=== PATIENT | female | born 1980 | race American Indian/Alaskan Native ===

== ENCOUNTER 2017-09-02 10:04 | Emergency (ER) | payer OTHER ==
[2017-09-02] MEDS ORDERED: Bacitracin Oint 1 GM U/D Packet TOP ONE (10:37)
[2017-09-02] MEDS ORDERED: Diphtheria,Pertussis(Acell),Tetanus Vaccine 0.5 ML SDV IM ONE (10:37)
[2017-09-02] MEDS ORDERED: Cephalexin 500 MG Cap PO ONE (10:38)
--- NOTE | 2017-09-02 10:53 | EDM.PDOC ---
Scribed by Becka Morgan 09/02/17 1053 for Fracnisco Medel PA ED HPI GENERAL MEDICAL PROBLEM - General Chief Complaint: Skin Complaint Stated Complaint: BITE BY SOMETHING, RT TOE, LEFT LEG Time Seen by Provider: 09/02/17 10:30 Source of Information: Reports: Patient, RN, RN Notes Reviewed History Limitations: Reports: No Limitations - History of Present Illness INITIAL COMMENTS - FREE TEXT/NARRATIVE: Patient is a 37-year-old female with left posterior ankle erythematous with white corner and no drainage. She also on the right foot 3rd toe distal a hangnail that she removed last week. She says drainage started on Sunday with increased pain today. It is also erythematous. Onset: Gradual Duration: Getting Worse Location: Reports: Lower Extremity, Left, Lower Extremity, Right Quality: Reports: Ache Severity: Moderate Improves with: Reports: None Worsens with: Reports: None Associated Symptoms: Reports: No Other Symptoms Left Lower Leg Pain Score (Numeric/FACES): 8 - Related Data Allergies Allergy/AdvReac Type Severity Reaction Status Date / Time No Known Allergies Allergy Verified 09/02/17 10:24 Home Meds: Home Meds . [No Known Home Meds] 09/02/17 [History] Past Medical History - Past Surgical History Female Surgical History: Reports: Hysterectomy Social & Family History - Tobacco Use Smoking Status *Q: Never Smoker - Caffeine Use Caffeine Use: Reports: Coffee, Soda, Tea - Recreational Drug Use Recreational Drug Use: No ED ROS GENERAL - Review of Systems Review Of Systems: ROS reveals no pertinent complaints other than HPI. ED EXAM, SKIN/RASH Exam: See Below Exam Limited By: No Limitations General Appearance: Alert Eye Exam: Bilateral Eye: Normal Inspection Ears: Normal External Exam, Normal Canal, Hearing Grossly Normal, Normal TMs Nose: Normal Inspection, Normal Mucosa, No Blood Throat/Mouth: Normal Inspection, Normal Lips, Normal Teeth, Normal Gums, Normal Oropharynx, Normal Voice, No Airway Compromise Head: Atraumatic, Normocephalic Neck: Normal Inspection, Supple, Non-Tender, Full Range of Motion Respiratory/Chest: No Respiratory Distress, Lungs Clear, Normal Breath Sounds, No Accessory Muscle Use, Chest Non-Tender Cardiovascular: Normal Peripheral Pulses, Regular Rate, Rhythm, No Edema, No Gallop, No JVD, No Murmur, No Rub GI/Abdominal: Normal Bowel Sounds (Female) Exam: Deferred Rectal (Female) Exam: Deferred Back Exam: Normal Inspection, Full Range of Motion, NT Extremities: Normal Inspection, Normal Range of Motion, Non-Tender, No Pedal Edema, Normal Capillary Refill Neurological: Alert, Oriented, CN II-XII Intact, Normal Cognition, Normal Gait, Normal Reflexes, No Motor/Sensory Deficits Psychiatric: Normal Affect, Normal Mood Location, Skin: Lower Extremity, Right (3rd toe erythema, entire distal toe wtih drainage medial.), Lower Extremity, Left (wound left posterior ankle with surrounding erythema andwhite in center with no drainage. ) Course - Vital Signs Last Recorded V/S: Last Vital Signs Temp 36.6 C 09/02/17 10:18 Pulse 63 09/02/17 10:18 Resp 16 09/02/17 10:18 BP 130/85 09/02/17 10:18 Pulse Ox 98 09/02/17 10:18 - Orders/Labs/Meds Orders: Active Orders 24 hr Category Date Time Status Vaccines to be Administered [RC] PER UNIT ROUTINE Care 09/02/17 10:39 Ordered CULTURE WOUND [RM] Stat Lab 09/02/17 10:46 Ordered Meds: Medications Discontinued Medications Generic Name Dose Route Start Last Admin Trade Name Freq PRN Reason Stop Dose Admin Bacitracin 1 dose 09/02/17 10:37 Bacitracin Oint 1 Gm TOP 09/02/17 10:38 ONETIME ONE Cephalexin 500 mg 09/02/17 10:38 09/02/17 10:48 Keflex PO 09/02/17 10:39 500 mg ONETIME ONE Administration Diphtheria/Tetanus/Acell Pertussis 0.5 ml 09/02/17 10:37 Adacel IM 09/02/17 10:38 .ONCE ONE Departure - Departure Time of Disposition: 10:49 Disposition: Home, Self-Care 01 Condition: Fair Clinical Impression: Cellulitis of left leg without foot, Cellulitis of right toe - Discharge Information *PRESCRIPTION DRUG MONITORING PROGRAM REVIEWED*: Not Applicable *COPY OF PRESCRIPTION DRUG MONITORING REPORT IN PATIENT PEPE: Not Applicable Instructions: Cellulitis, Adult, [id number] Forms: ED Department Discharge Care Plan Goals: The patient was advised of the examination results during the visit. A sample of the drainage from her right middle toe was sent to the lab for analysis. The patient will be notified if the culture results demonstrate that the antibiotic given to the patient is not appropriate for the infection once the results are received. The patient's wounds were dressed with antibiotic ointment while in the ED. The patient was given an oral dose of Keflex (500 mg) while in the ED. The patient was discharged with a script for Keflex (500 mg) #40 to take 1 by mouth 4 times per day for 10 days. The patient was encouraged to fill the prescription today (the pharmacy opens at noon) and take the medication as directed. If the patient has any additional symptoms or concerns, the patient should visit her primary care facility or return to the emergency department. - My Orders Last 24 Hours: My Active Orders 09/02/17 10:39 Vaccines to be Administered [RC] PER UNIT ROUTINE 09/02/17 10:46 CULTURE WOUND [RM] Stat - Assessment/Plan Last 24 Hours: My Active Orders 09/02/17 10:39 Vaccines to be Administered [RC] PER UNIT ROUTINE 09/02/17 10:46 CULTURE WOUND [RM] Stat I have read and agree with the documentation that has been completed regarding this visit. By signing this record, I attest that the documentation was completed in my physical presence and is an accurate record of the encounter.
== END 2017-09-02 11:00 | disposition home or self-care (01) ==
LOC: DL.ED 10:04
DX: L03.031 Cellulitis of right toe (principal); L03.116 Cellulitis of left lower limb
CPT/HCPCS: 87070; 87077; 87186; 90715; 96372; 99283; A9270

== ENCOUNTER 2019-06-27 20:42 | Emergency (ER) | payer MEDICAID, OTHER ==
--- NOTE | 2019-06-27 21:40 | EDM.PDOC ---
ED HPI GENERAL MEDICAL PROBLEM - General Stated Complaint: RIGHT SIDE CHEST PAIN Time Seen by Provider: 06/27/19 21:20 Source of Information: Reports: Patient History Limitations: Reports: No Limitations - History of Present Illness INITIAL COMMENTS - FREE TEXT/NARRATIVE: This 39 yo female patient reports to the ED with right upper chest pain. The patient reports her pain started yesterday while she was doing her house cleaning and dishes. The patient reports she feels like there is a sharp pressure into her right chest. The patient reports she has noticed the pain getting worse throughout the evening. The patient has not been seen or attempted to be seen in the clinic for her current symptoms. 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 [No Known Home Meds] 09/02/17 [History] Past Medical History - Past Surgical History Female Surgical History: Reports: Hysterectomy Social & Family History - Caffeine Use Caffeine Use: Reports: Coffee, Soda, Tea ED ROS GENERAL - Review of Systems Review Of Systems: Comprehensive ROS is negative, except as noted in HPI. ED EXAM, GENERAL - Physical Exam Exam: See Below Exam Limited By: No Limitations General Appearance: Alert, WD/WN, Anxious, Moderate Distress, Obese Eye Exam: Bilateral Eye: EOMI, Normal Inspection, PERRL Ears: Normal External Exam, Normal Canal, Hearing Grossly Normal, Normal TMs Nose: Normal Inspection, Normal Mucosa, No Blood Throat/Mouth: Normal Inspection, Normal Lips, Normal Teeth, Normal Gums, Normal Oropharynx, Normal Voice, No Airway Compromise Head: Atraumatic, Normocephalic Neck: Normal Inspection, Supple, Non-Tender, Full Range of Motion Respiratory/Chest: No Respiratory Distress, Lungs Clear, Normal Breath Sounds, No Accessory Muscle Use, Chest Non-Tender Cardiovascular: Normal Peripheral Pulses, Regular Rate, Rhythm, No Edema, No Gallop, No JVD, No Murmur, No Rub GI/Abdominal: Normal Bowel Sounds, Soft, Non-Tender, No Organomegaly, No Distention, No Abnormal Bruit, No Mass (Female) Exam: Deferred Rectal (Female) Exam: Deferred Back Exam: Normal Inspection, Full Range of Motion, NT Extremities: Normal Inspection, Normal Range of Motion, Non-Tender, Normal Capillary Refill, No Pedal Edema Neurological: Alert, Oriented, CN II-XII Intact, Normal Cognition, Normal Gait, Normal Reflexes, No Motor/Sensory Deficits Psychiatric: Normal Affect, Normal Mood Skin Exam: Warm, Dry, Intact, Normal Color, No Rash Lymphatic: No Adenopathy Course - Vital Signs Last Recorded V/S: Last Vital Signs Temp 37.1 C 06/27/19 20:54 Pulse 97 06/27/19 20:54 Resp 16 06/27/19 20:54 BP 131/77 06/27/19 20:54 Pulse Ox 95 06/27/19 20:54 - Orders/Labs/Meds Orders: Active Orders 24 hr Category Date Time Status EKG Documentation Completion [RC] STAT Care 06/27/19 21:04 Ordered CBC WITH AUTO DIFF [HEME] Stat Lab 06/27/19 21:04 Ordered COMPREHENSIVE METABOLIC PN,CMP [CHEM] Stat Lab 06/27/19 21:04 Ordered DRUG SCREEN URINE BIORAD [URCHEM] Stat Lab 06/27/19 21:04 Ordered ETHANOL BLOOD MEDICAL [CHEM] Stat Lab 06/27/19 21:04 Ordered TROPONIN I [CHEM] Stat Lab 06/27/19 21:04 Ordered UA RFX SHAYY AND CULT IF INDIC [URIN] Urgent Lab 06/27/19 21:04 Ordered Labs: Laboratory Tests 06/27/19 Range/Units 21:15 Urine HCG, Qual Negative Departure - Departure Time of Disposition: 21:34 Disposition: Against Medical Advice 07 Condition: Undetermined Clinical Impression: Left against medical advice Care Plan Goals: This patient left prior to any lab work was completed. Sepsis Event Note - Evaluation Sepsis Screening Result: No Definite Risk - Focused Exam Vital Signs: Vital Signs Temp Pulse Resp BP Pulse Ox 06/27/19 20:54 37.1 C 97 16 131/77 95 Date Exam was Performed: 06/27/19 Time Exam was Performed: 21:34 - My Orders Last 24 Hours: My Active Orders 06/27/19 21:04 EKG Documentation Completion [RC] STAT CBC WITH AUTO DIFF [HEME] Stat COMPREHENSIVE METABOLIC PN,CMP [CHEM] Stat DRUG SCREEN URINE BIORAD [URCHEM] Stat ETHANOL BLOOD MEDICAL [CHEM] Stat TROPONIN I [CHEM] Stat UA RFX SHAYY AND CULT IF INDIC [URIN] Urgent - Assessment/Plan Last 24 Hours: My Active Orders 06/27/19 21:04 EKG Documentation Completion [RC] STAT CBC WITH AUTO DIFF [HEME] Stat COMPREHENSIVE METABOLIC PN,CMP [CHEM] Stat DRUG SCREEN URINE BIORAD [URCHEM] Stat ETHANOL BLOOD MEDICAL [CHEM] Stat TROPONIN I [CHEM] Stat UA RFX SHAYY AND CULT IF INDIC [URIN] Urgent
[2019-06-27 21:52] LABS: ANION GAP 14.9 mEq/L (7-13); CHLORIDE,CL 103 mmol/L (98-107); SODIUM,NA 140 mmol/L (136-145)
== END 2019-06-27 21:40 | disposition left against medical advice (07) ==
LOC: DL.ED 20:42
DX: R07.89 Other chest pain (principal)
CPT/HCPCS: 36415; 80053; 80305-QW; 80307; 81001; 81025; 84484; 85025; 93005; 99285-25

== ENCOUNTER 2020-03-02 14:56 | Emergency (ER) | payer MEDICAID ==
--- NOTE | 2020-03-02 15:57 | CR ---
EXAMINATION: Chest 1V Frontal SEX: Female AGE: 39 years CLINICAL HISTORY: 39-year-old female with "no breath sounds" on right side. No known trauma. CT exam 06 February 2020 at this institution reveals bibasilar dependent pleural effusions (largest on the right). INTERPRETATION: (Upright AP portable) abnormal. 1. Huge pleural fluid accumulation occupying two thirds of the right hemithorax (smaller left pleural effusion). 2. Normal cardiac silhouette (size and configuration). 3. No pulmonary vascular congestion (cephalization of flow or alveolar edema). 4. No lung mass or obvious hilar lymphadenopathy. 5. No pneumothorax or pneumomediastinum. Midline tracheal bronchial airway unremarkable.
--- NOTE | 2020-03-02 16:43 | EDM.PDOC ---
ED HPI GENERAL MEDICAL PROBLEM - General Chief Complaint: Respiratory Problem Stated Complaint: FLUID IN RIGHT LUNG Time Seen by Provider: 03/02/20 15:35 Source of Information: Reports: Patient, Old Records, RN, RN Notes Reviewed History Limitations: Reports: No Limitations - History of Present Illness INITIAL COMMENTS - FREE TEXT/NARRATIVE: Pt sent from [facility] to be transferred to [facility]. Pt states she went to clinic today for a check up and reported feeling short of breath. The shortness of breath began about 2 weeks ago, but has been getting progressively worse. Now she struggles to breath just walking across a room. Pt states she was in [facility] on or about 02/11/20 for paracentesis. Hx of alcoholic cirrhosis. Claims to have abstained from alcohol consumption since 2019. Denies fever, chills, N/V/D, or hemoptysis. Admits to cough and orthopnea. Onset: Gradual Duration: Getting Worse Location: Reports: Chest Quality: Reports: Other (Denies pain) Severity: Severe Improves with: Reports: None Worsens with: Reports: None Associated Symptoms: Reports: No Other Symptoms - Related Data Allergies Allergy/AdvReac Type Severity Reaction Status Date / Time No Known Allergies Allergy Verified 03/02/20 15:29 Home Meds: Home Meds Lactulose [Cephulac] 0 ml PO ASDIRECTED 03/02/20 [History] Multivitamin with Minerals [Multiple Vitamin] 1 each PO DAILY 03/02/20 [History] Thiamine HCl 100 mg PO DAILY 03/02/20 [History] Past Medical History - Past Health History Medical/Surgical History: Denies Medical/Surgical History Gastrointestinal History: Reports: Cirrhosis - Past Surgical History Female Surgical History: Reports: Hysterectomy Social & Family History - Family History Family Medical History: No Pertinent Family History - Tobacco Use Tobacco Use Status *Q: Never Tobacco User - Caffeine Use Caffeine Use: Reports: Coffee, Soda, Tea Caffeine Use Comment: patient denies - Alcohol Use Alcohol Use History: Yes Alcohol Use Frequency: Not Used in Over 4 Months - Living Situation & Occupation Living situation: Reports: Occupation: Unemployed ED ROS GENERAL - Review of Systems Review Of Systems: Comprehensive ROS is negative, except as noted in HPI. ED EXAM, GENERAL - Physical Exam Exam: See Below Exam Limited By: No Limitations General Appearance: Alert, No Apparent Distress, Other (Chronically ill appearing) Eye Exam: Bilateral Eye: PERRL (Scleral icterus) Nose: Normal Inspection Throat/Mouth: Normal Voice, No Airway Compromise Head: Atraumatic, Normocephalic Neck: Normal Inspection Respiratory/Chest: No Respiratory Distress, No Accessory Muscle Use, Decreased Breath Sounds (No breath sounds on right middle and lower lung field, dull to percussion) Cardiovascular: Regular Rate, Rhythm GI/Abdominal: Normal Bowel Sounds, Soft, Tender (Mild RUQ tenderness, protruberant abdomen with mild fluid wave) (Female) Exam: Deferred Rectal (Female) Exam: Deferred Back Exam: Normal Inspection Neurological: Alert, Oriented, No Motor/Sensory Deficits Psychiatric: Normal Affect, Normal Mood Skin Exam: Warm, Dry, Jaundice. No: Cyanosis, Ecchymosis, Petechiae, Rash Course - Vital Signs Last Recorded V/S: Last Vital Signs Temp 99.2 F 03/02/20 15:28 Pulse 97 03/02/20 15:28 Resp 16 03/02/20 15:28 BP 116/69 03/02/20 15:28 Pulse Ox 96 03/02/20 15:28 - Radiology Interpretation Free Text/Narrative:: CXR: large Rt pleural effusion per Rad. report. Departure - Departure Time of Disposition: 16:30 Disposition: DC/Tfer to Acute Hospital 02 Condition: Fair Clinical Impression: Pleural effusion on right, Alcoholic cirrhosis of liver with ascites - Discharge Information *PRESCRIPTION DRUG MONITORING PROGRAM REVIEWED*: Not Applicable *COPY OF PRESCRIPTION DRUG MONITORING REPORT IN PATIENT PEPE: Not Applicable Forms: ED Department Discharge, Interfacility Transfer [facility] Sepsis Event Note (ED) - Evaluation Sepsis Screening Result: No Definite Risk - Focused Exam Vital Signs: Vital Signs Temp Pulse Resp BP Pulse Ox 03/02/20 15:28 99.2 F 97 16 116/69 96
== END 2020-03-02 17:18 ==
LOC: DL.ED 14:56
DX: J90 Pleural effusion, not elsewhere classified (principal); K70.31 Alcoholic cirrhosis of liver with ascites
CPT/HCPCS: 71045; 99285-25

== ENCOUNTER 2020-12-24 11:13 | Emergency (ER) | payer MEDICAID ==
[2020-12-24] MEDS ORDERED: Sodium Chloride 0.9% 10 ML Syringe FLUSH PRN (11:50)
[2020-12-24] MEDS ORDERED: GI Cocktail Oral Solution 30 ML PO ONE (12:03)
[2020-12-24] MEDS ORDERED: Ondansetron 4 MG/2 ML SDV IVPUSH ONE (12:04)
--- NOTE | 2020-12-24 12:14 | EDM.PDOC ---
ED HPI GENERAL MEDICAL PROBLEM - General Chief Complaint: Chest Pain Stated Complaint: CHEST PAIN Time Seen by Provider: 12/24/20 12:05 Source of Information: Reports: Patient History Limitations: Reports: No Limitations - History of Present Illness INITIAL COMMENTS - FREE TEXT/NARRATIVE: 40 y/o F c/o 09/28 epigastric pain started 9 am this morning after she took her daily meds. Pt normally takes her meds and then eats breakfast but today she skipped breakfast. Pt states after taking her pills she developed throbbing epigastric pain , nonradiating. Meds this morning consisted of Spironolactone, Iron, Lactulose, pantoprazole. After the pain developed pt became nauseated and decided to come to the Er. Hx of stage 3 liver disease secondary to alcoholism. Pt quit drinking a year ago and reports her doctors advise her liver is improving. She denies, kruger, cp, db, neck pn, jaw pn, shoulder pn, fever, coguh, chills, drugs, etoh, trauma. Chest Pain Score (Numeric/FACES): 9 - Related Data Allergies Allergy/AdvReac Type Severity Reaction Status Date / Time No Known Allergies Allergy Verified 03/02/20 15:29 Home Meds: Home Meds Lactulose [Cephulac] 30 ml PO QID 03/02/20 [History] Multivitamin with Minerals [Multiple Vitamin] 1 each PO DAILY 03/02/20 [History] Thiamine HCl 100 mg PO DAILY 03/02/20 [History] Furosemide [Lasix] 40 mg PO DAILY 12/24/20 [History] Pantoprazole 20 mg PO ACBREAKFAST 12/24/20 [History] Spironolactone [Aldactone] 100 mg PO DAILY 12/24/20 [History] Past Medical History - Past Health History Medical/Surgical History: Denies Medical/Surgical History Gastrointestinal History: Reports: Cirrhosis, Other (See Below) Other Gastrointestinal History: ascites - Past Surgical History Female Surgical History: Reports: Hysterectomy Social & Family History - Family History Family Medical History: No Pertinent Family History - Tobacco Use Tobacco Use Status *Q: Never Tobacco User - Caffeine Use Caffeine Use: Reports: None Caffeine Use Comment: patient denies - Recreational Drug Use Recreational Drug Use: No - Living Situation & Occupation Living situation: Reports: Occupation: Unemployed ED ROS GENERAL - Review of Systems Review Of Systems: Comprehensive ROS is negative, except as noted in HPI. ED EXAM, GENERAL - Physical Exam Exam: See Below Exam Limited By: No Limitations General Appearance: Alert Eye Exam: Bilateral Eye: PERRL Nose: Normal Inspection, Normal Mucosa, No Blood Throat/Mouth: Normal Inspection, Normal Lips, Normal Teeth, Normal Gums, Normal Oropharynx, Normal Voice, No Airway Compromise Head: Atraumatic, Normocephalic Neck: Normal Inspection, Supple, Non-Tender, Full Range of Motion Respiratory/Chest: No Respiratory Distress, Lungs Clear, Normal Breath Sounds, No Accessory Muscle Use, Chest Non-Tender Cardiovascular: Normal Peripheral Pulses, Regular Rate, Rhythm, No JVD, No Murmur GI/Abdominal: Soft, Tender (tender over the epigastrium, positive murphys sign. No ecchymosis noted over the abd. ) Back Exam: Normal Inspection, Full Range of Motion Extremities: Normal Inspection, Normal Range of Motion, Non-Tender, Normal Capillary Refill, No Pedal Edema Neurological: Alert, Oriented, CN II-XII Intact, Normal Cognition, Normal Gait, Normal Reflexes, No Motor/Sensory Deficits Psychiatric: Normal Affect, Normal Mood Skin Exam: Warm, Dry, Intact #1 Interpretation EKG Date: 12/24/20 Time: 11:27 Rhythm: Other (sinus) [place]: LAD-Left [place] Deviation P-Wave: Present QRS: Normal ST-T: Normal QT: Normal Course - Vital Signs Last Recorded V/S: Last Vital Signs Temp 97.8 F 12/24/20 11:47 Pulse 65 12/24/20 11:47 Resp 20 12/24/20 11:47 BP 116/66 12/24/20 11:47 Pulse Ox 100 12/24/20 11:47 - Orders/Labs/Meds Orders: Active Orders 24 hr Category Date Time Status Peripheral IV Care [RC] . DIRECTED Care 12/24/20 11:51 Active CULTURE URINE [RM] Stat Lab 12/24/20 13:43 Received UA W/MICROSCOPIC [URIN] Stat Lab 12/24/20 13:43 Results Sodium Chloride 0.9% [Saline Flush] Med 12/24/20 11:50 Active 10 ml FLUSH ASDIRECTED PRN Peripheral IV Insertion Adult [OM.PC] Routine Oth 12/24/20 11:50 Ordered Medication Orders Sodium Chloride (Sodium Chloride 0.9% 10 Ml Syringe) 10 ml FLUSH ASDIRECTED PRN PRN Reason: Keep Vein Open Last Admin: 12/24/20 12:24 Dose: 10 ml Documented by: [id number] Labs: Laboratory Tests 12/24/20 12/24/20 12/24/20 Range/Units 11:47 11:47 11:47 WBC 10.1 H (5.0-10.0) 10^3/uL RBC 3.59 L (4.2-5.4) 10^6/uL Hgb 11.8 L (12.0-16.0) g/dL Hct 35.0 L (37.0-47.0) % MCV 97.5 D (80-100) fL MCH 32.9 (27.0-34.0) pg MCHC 33.7 (33.0-35.0) g/dL Plt Count 78 L D (150-450) 10^3/uL Neut % (Auto) 72.1 (42.2-75.2) % Lymph % (Auto) 17.5 L (20.5-50.1) % [place] % (Auto) 6.6 (2-8) % Eos % (Auto) 3.6 H (1.0-3.0) % Baso % (Auto) 0.2 (0.0-1.0) % D-Dimer, Quantitative (0-400) ng/mL Sodium 140 (136-145) mmol/L Potassium 4.0 (3.5-5.1) mmol/L Chloride 107 (98-107) mmol/L Carbon Dioxide 22 (21-32) mmol/L Anion Gap 15.0 H (7-13) mEq/L BUN 14 (7-18) mg/dL Creatinine 0.90 (0.55-1.02) mg/dL Est Cr Clr Drug Dosing 77.01 mL/min Estimated GFR (MDRD) > 60 BUN/Creatinine Ratio 15.6 (No establ ref range) Glucose 99 (70-99) mg/dL Lactic Acid (0.4-2.0) mmol/L Calcium 8.9 (8.5-10.1) mg/dL Phosphorus 3.2 (2.6-4.7) mg/dL Magnesium 1.9 (1.8-2.4) mg/dL Total Bilirubin 1.6 H (0.2-1.0) mg/dL AST 29 (15-37) U/L ALT 25 (14-59) U/L Alkaline Phosphatase 106 (46-116) U/L Ammonia 27 (11-32) umol/L Troponin I High Sens 886 H* (<=51) pg/mL C-Reactive Protein < 0.2 (0.0-0.9) mg/dL B-Natriuretic Peptide 29 (0-100) pg/ml Total Protein 7.5 (6.4-8.2) g/dL Albumin 2.9 L (3.4-5.0) g/dL Globulin 4.6 Albumin/Globulin Ratio 0.63 Amylase 86 (25-115) U/L Lipase 242 (73-393) U/L TSH, Ultra Sensitive 1.37 (0.36-3.74) uIU/mL Urine Color (YELLOW) Urine Appearance (CLEAR) Urine pH (5.0-9.0) Ur Specific [place] (1.005-1.030) Urine Protein (NEGATIVE) Urine Glucose (UA) (NEGATIVE) Urine Ketones (NEGATIVE) Urine Occult Blood (NEGATIVE) Urine Nitrite (NEGATIVE) Urine Bilirubin (NEGATIVE) Urine Urobilinogen (0.2-1.0) mg/dL Ur Leukocyte Esterase (NEGATIVE) Urine Opiates Screen (NEGATIVE) Ur Oxycodone Screen (NEGATIVE) Urine Methadone Screen (NEGATIVE) Ur Barbiturates Screen (NEGATIVE) U Tricyclic Antidepress (NEGATIVE) Ur Phencyclidine Scrn (NEGATIVE) Ur Amphetamine Screen (NEGATIVE) U Methamphetamines Scrn (NEGATIVE) Urine MDMA Screen (NEGATIVE) U Benzodiazepines Scrn (NEGATIVE) Urine Cocaine Screen (NEGATIVE) U Marijuana (THC) Screen (NEGATIVE) Ethyl Alcohol < 3 (0) mg/dL 12/24/20 12/24/20 12/24/20 Range/Units 11:47 11:47 13:43 WBC (5.0-10.0) 10^3/uL RBC (4.2-5.4) 10^6/uL Hgb (12.0-16.0) g/dL Hct (37.0-47.0) % MCV (80-100) fL MCH (27.0-34.0) pg MCHC (33.0-35.0) g/dL Plt Count (150-450) 10^3/uL Neut % (Auto) (42.2-75.2) % Lymph % (Auto) (20.5-50.1) % Carver % (Auto) (2-8) % Eos % (Auto) (1.0-3.0) % Baso % (Auto) (0.0-1.0) % D-Dimer, Quantitative 128 (0-400) ng/mL Sodium (136-145) mmol/L Potassium (3.5-5.1) mmol/L Chloride (98-107) mmol/L Carbon Dioxide (21-32) mmol/L Anion Gap (7-13) mEq/L BUN (7-18) mg/dL Creatinine (0.55-1.02) mg/dL Est Cr Clr Drug Dosing mL/min Estimated GFR (MDRD) BUN/Creatinine Ratio (No establ ref range) Glucose (70-99) mg/dL Lactic Acid 1.2 (0.4-2.0) mmol/L Calcium (8.5-10.1) mg/dL Phosphorus (2.6-4.7) mg/dL Magnesium (1.8-2.4) mg/dL Total Bilirubin (0.2-1.0) mg/dL AST (15-37) U/L ALT (14-59) U/L Alkaline Phosphatase (46-116) U/L Ammonia (11-32) umol/L Troponin I High Sens (<=51) pg/mL C-Reactive Protein (0.0-0.9) mg/dL B-Natriuretic Peptide (0-100) pg/ml Total Protein (6.4-8.2) g/dL Albumin (3.4-5.0) g/dL Globulin Albumin/Globulin Ratio Amylase (25-115) U/L Lipase (73-393) U/L TSH, Ultra Sensitive (0.36-3.74) uIU/mL Urine Color Yellow (YELLOW) Urine Appearance Clear (CLEAR) Urine pH 7.5 (5.0-9.0) Ur Specific [place] 1.020 (1.005-1.030) Urine Protein Negative (NEGATIVE) Urine Glucose (UA) Negative (NEGATIVE) Urine Ketones Negative (NEGATIVE) Urine Occult Blood Moderate H (NEGATIVE) Urine Nitrite Negative (NEGATIVE) Urine Bilirubin Negative (NEGATIVE) Urine Urobilinogen 1.0 (0.2-1.0) mg/dL Ur Leukocyte Esterase Trace H (NEGATIVE) Urine Opiates Screen (NEGATIVE) Ur Oxycodone Screen (NEGATIVE) Urine Methadone Screen (NEGATIVE) Ur Barbiturates Screen (NEGATIVE) U Tricyclic Antidepress (NEGATIVE) Ur Phencyclidine Scrn (NEGATIVE) Ur Amphetamine Screen (NEGATIVE) U Methamphetamines Scrn (NEGATIVE) Urine MDMA Screen (NEGATIVE) U Benzodiazepines Scrn (NEGATIVE) Urine Cocaine Screen (NEGATIVE) U Marijuana (THC) Screen (NEGATIVE) Ethyl Alcohol (0) mg/dL 12/24/20 12/24/20 Range/Units 13:43 13:52 WBC (5.0-10.0) 10^3/uL RBC (4.2-5.4) 10^6/uL Hgb (12.0-16.0) g/dL Hct (37.0-47.0) % MCV (80-100) fL MCH (27.0-34.0) pg MCHC (33.0-35.0) g/dL Plt Count (150-450) 10^3/uL Neut % (Auto) (42.2-75.2) % Lymph % (Auto) (20.5-50.1) % [place] % (Auto) (2-8) % Eos % (Auto) (1.0-3.0) % Baso % (Auto) (0.0-1.0) % D-Dimer, Quantitative (0-400) ng/mL Sodium (136-145) mmol/L Potassium (3.5-5.1) mmol/L Chloride (98-107) mmol/L Carbon Dioxide (21-32) mmol/L Anion Gap (7-13) mEq/L BUN (7-18) mg/dL Creatinine (0.55-1.02) mg/dL Est Cr Clr Drug Dosing mL/min Estimated GFR (MDRD) BUN/Creatinine Ratio (No establ ref range) Glucose (70-99) mg/dL Lactic Acid (0.4-2.0) mmol/L Calcium (8.5-10.1) mg/dL Phosphorus (2.6-4.7) mg/dL Magnesium (1.8-2.4) mg/dL Total Bilirubin (0.2-1.0) mg/dL AST (15-37) U/L ALT (14-59) U/L Alkaline Phosphatase (46-116) U/L Ammonia (11-32) umol/L Troponin I High Sens 889 H* (<=51) pg/mL C-Reactive Protein (0.0-0.9) mg/dL B-Natriuretic Peptide (0-100) pg/ml Total Protein (6.4-8.2) g/dL Albumin (3.4-5.0) g/dL Globulin Albumin/Globulin Ratio Amylase (25-115) U/L Lipase (73-393) U/L TSH, Ultra Sensitive (0.36-3.74) uIU/mL Urine Color (YELLOW) Urine Appearance (CLEAR) Urine pH (5.0-9.0) Ur Specific [place] (1.005-1.030) Urine Protein (NEGATIVE) Urine Glucose (UA) (NEGATIVE) Urine Ketones (NEGATIVE) Urine Occult Blood (NEGATIVE) Urine Nitrite (NEGATIVE) Urine Bilirubin (NEGATIVE) Urine Urobilinogen (0.2-1.0) mg/dL Ur Leukocyte Esterase (NEGATIVE) Urine Opiates Screen Negative (NEGATIVE) Ur Oxycodone Screen Negative (NEGATIVE) Urine Methadone Screen Negative (NEGATIVE) Ur Barbiturates Screen Negative (NEGATIVE) U Tricyclic Antidepress Negative (NEGATIVE) Ur Phencyclidine Scrn Negative (NEGATIVE) Ur Amphetamine Screen Negative (NEGATIVE) U Methamphetamines Scrn Negative (NEGATIVE) Urine MDMA Screen Negative (NEGATIVE) U Benzodiazepines Scrn Negative (NEGATIVE) Urine Cocaine Screen Negative (NEGATIVE) U Marijuana (THC) Screen Negative (NEGATIVE) Ethyl Alcohol (0) mg/dL Meds: Medications Generic Name Dose Route Start Last Admin Trade Name Freq PRN Reason Stop Dose Admin Sodium Chloride 10 ml 12/24/20 11:50 12/24/20 12:24 Sodium Chloride 0.9% 10 Ml Syringe FLUSH 10 ml ASDIRECTED PRN Administration Keep Vein Open Discontinued Medications Generic Name Dose Route Start Last Admin Trade Name Freq PRN Reason Stop Dose Admin Al Hydroxide/Mg Hydroxide 30 ml 12/24/20 12:03 12/24/20 12:25 Gi Cocktail Oral Solution 30 Ml PO 12/24/20 12:04 30 ml ONETIME ONE Administration Aspirin 324 mg 12/24/20 12:39 Aspirin 81 Mg Tab.Chew PO 12/24/20 12:40 ONETIME ONE Ondansetron HCl 4 mg 12/24/20 12:04 12/24/20 12:24 Ondansetron 4 Mg/2 Ml Sdv IVPUSH 12/24/20 12:05 4 mg ONETIME ONE Administration - Re-Assessments/Exams Free Text/Narrative Re-Assessment/Exam: 12/24/20 14:36 The pt is feeling relief in her symptoms after tiffani GI cocktail and nausea meds. The US indicates the pt has gall bladder disease with stones. I will have her follow up wit a surgeon for further workup/treatment of her gallbladder. The pts troponin was initially elevated but the repeat it virtually unchanged. I am confident the pts symptoms are more likely GI and not cardiac. Departure - Departure Time of Disposition: 14:38 Disposition: Home, Self-Care 01 Condition: Good Clinical Impression: Gall bladder disease Instructions: Cholelithiasis, [id number] Forms: ED Department Discharge Additional Instructions: Follow up with a surgeon to discuss further treatment of your gall bladder disease. Avoid greasy foods as they can bring on gall bladder pain. Use Ibuprofen for pain as needed Take your medicines with food. Sepsis Event Note (ED) - Evaluation Sepsis Screening Result: No Definite Risk - Focused Exam Vital Signs: Vital Signs Temp Pulse Resp BP Pulse Ox 12/24/20 11:47 97.8 F 65 20 116/66 100 - My Orders Last 24 Hours: My Active Orders 12/24/20 11:50 Sodium Chloride 0.9% [Saline Flush] 10 ml FLUSH ASDIRECTED PRN Peripheral IV Insertion Adult [OM.PC] Routine 12/24/20 11:51 Peripheral IV Care [RC] . DIRECTED 12/24/20 13:43 CULTURE URINE [RM] Stat UA W/MICROSCOPIC [URIN] Stat - Assessment/Plan Last 24 Hours: My Active Orders 12/24/20 11:50 Sodium Chloride 0.9% [Saline Flush] 10 ml FLUSH ASDIRECTED PRN Peripheral IV Insertion Adult [OM.PC] Routine 12/24/20 11:51 Peripheral IV Care [RC] . DIRECTED 12/24/20 13:43 CULTURE URINE [RM] Stat UA W/MICROSCOPIC [URIN] Stat
[2020-12-24 12:24] LABS: CHLORIDE,CL 107 mmol/L (98-107); SODIUM,NA 140 mmol/L (136-145)
[2020-12-24] MEDS ORDERED: Aspirin 81 MG Tab.Chew PO ONE (12:39)
--- NOTE | 2020-12-24 13:30 | US ---
EXAMINATION: Abdomen Ltd SEX: Female AGE: 40 years CLINICAL HISTORY: 40-year-old female with right upper quadrant (RUQ) pain. CT exam 06 February 2020 revealed "ascites (chronic liver disease) and hydropic gallbladder with thickened wall" Interpretation: Abnormal. 1. Distended gallbladder with wall thickening (5.5 mm) and multiple tiny dependent intraluminal echogenic foci with backwall "shadowing" typical of gallstones. 2. Homogeneous normal shoulder density the liver. No sign of discrete cystic or solid intrahepatic mass lesion and no dilatation of intra or extrahepatic biliary ducts (common bile duct 4.4 mm diameter). 3. Sonographically normal pancreas i.e. no sign of mass, pseudocyst, calcifications or major pancreatic duct dilatation. No ascites. 4. Upper abdominal aorta unremarkable. No pleural effusions. CONCLUSION: Diseased gallbladder (Cholelithiasis).
[2020-12-24 14:02] LABS: BARBITURATES,URINE NEGATIVE (NEGATIVE); BENZODIAZEPINE,URINE NEGATIVE (NEGATIVE); MDMA (ECSTASY), URINE NEGATIVE (NEGATIVE); METHADONE,URINE NEGATIVE (NEGATIVE); METHAMPHETAMINES,URINE NEGATIVE (NEGATIVE); OPIATES,URINE NEGATIVE (NEGATIVE); TCA,URINE NEGATIVE (NEGATIVE)
[2020-12-24 14:03] LABS: AMPHETAMINES,URINE NEGATIVE (NEGATIVE); OXYCODONE,URINE NEGATIVE (NEGATIVE); PHENCYCLIDINE,URINE NEGATIVE (NEGATIVE)
== END 2020-12-24 14:52 | disposition home or self-care (01) ==
LOC: DL.ED 11:13
DX: K82.9 Disease of gallbladder, unspecified (principal); Z79.899 Other long term (current) drug therapy
CPT/HCPCS: 36415; 76705; 80053; 80305; 80307; 81001; 82140; 82150; 83605; 83690; 83735; 83880; 84100; 84443; 84484; 85025; 85379; 86140; 87086; 93005; 96374; 99284; A9270; J2405

== ENCOUNTER 2022-01-24 18:07 | Emergency (ER) | payer MEDICAID, OTHER ==
[2022-01-24] MEDS ORDERED: Sodium Chloride 0.9% 10 ML Syringe FLUSH PRN (18:28)
[2022-01-24 18:54] LABS: ANION GAP 16.4 mEq/L (7-13); CHLORIDE,CL 101 mmol/L (98-107); SODIUM,NA 137 mmol/L (136-145)
[2022-01-24 18:57] LABS: ESTIMATED GFR 70 mL/min (>=60)
[2022-01-24] MEDS ORDERED: Ondansetron 4 MG/2 ML SDV IVPUSH ONE (19:01)
[2022-01-24] MEDS ORDERED: Sodium Chloride 0.9% 1,000 ML IV ONE (19:03)
[2022-01-24] MEDS: GI Cocktail Oral Solution 30 ML PO ONE ×2 (19:18→19:47)
[2022-01-24 20:00] LABS: CORONAVIRUS COVID-19 NAA NEGATIVE (NEGATIVE)
== END 2022-01-24 20:35 | disposition home or self-care (01) ==
LOC: DL.ED 18:07
DX: K82.9 Disease of gallbladder, unspecified (principal); Z90.710 Acquired absence of both cervix and uterus; Z20.822 Contact with and (suspected) exposure to COVID-19
CPT/HCPCS: 0240U; 36415; 71045; 80053; 80307; 81001; 82150; 83605; 83690; 84145; 84484; 85025; 86140; 93005; 96374; 99285; A9270; J2405; J7030

== ENCOUNTER 2024-01-11 06:05 | Observation (INO) | payer SELFPAY ==
[2024-01-11 04:15] LABS: BASOPHILS PERCENT AUTO 0.7 % (0.0-1.0); HEMATOCRIT 38.5 % (37.0-47.0); HEMOGLOBIN 12.9 g/dL (12.0-16.0); LYMPHOCYTES PERCENT AUTO 48.5 % (20.5-50.1); MEAN CORPUSCULAR HGB CONC 33.5 g/dL (33.0-35.0); MEAN CORPUSCULAR VOLUME 104.3 fL (80-100); MONOCYTES PERCENT AUTO 8.7 % (2-8); NEUTROPHILS PERCENT AUTO 35.1 % (42.2-75.2); PLATELET COUNT,PLT 174 10^3/uL (150-450); RED BLOOD CELL COUNT 3.69 10^6/uL (4.2-5.4); WHITE BLOOD CELL COUNT,WBC 5.8 10^3/uL (5.0-10.0)
[2024-01-11] MEDS: MVI, Adult with Vitamin K 10 ML, Folic Acid 1 MG, Thiamine 100 MG in Lactated Ringers 1... IV ONE (04:15)
[2024-01-11 04:20] LABS: APPEARANCE,URINE CLOUDY (CLEAR); BILIRUBIN,URINE NEGATIVE (NEGATIVE); COLOR,URINE YELLOW (YELLOW); GLUCOSE,URINE NEGATIVE (NEGATIVE); KETONES,URINE NEGATIVE (NEGATIVE); LEUKOCYTE ESTERASE,URINE MODERATE (NEGATIVE); NITRITE,URINE NEGATIVE (NEGATIVE); OCCULT BLOOD,URINE MODERATE (NEGATIVE); PROTEIN,URINE 100 (NEGATIVE); UROBILINOGEN,URINE 0.2 mg/dL (0.2-1.0)
[2024-01-11 04:22] LABS: AMPHETAMINES,URINE NEGATIVE (NEGATIVE); BARBITURATES,URINE NEGATIVE (NEGATIVE); BENZODIAZEPINE,URINE NEGATIVE (NEGATIVE); MDMA (ECSTASY), URINE NEGATIVE (NEGATIVE); METHADONE,URINE NEGATIVE (NEGATIVE); METHAMPHETAMINES,URINE NEGATIVE (NEGATIVE); OPIATES,URINE NEGATIVE (NEGATIVE); OXYCODONE,URINE NEGATIVE (NEGATIVE); PHENCYCLIDINE,URINE NEGATIVE (NEGATIVE); TCA,URINE NEGATIVE (NEGATIVE)
[2024-01-11 04:37] LABS: PROTHROMBIN TIME 10.5 SEC (9.0-12.0)
[2024-01-11 04:39] LABS: A/G RATIO 0.7; ALANINE AMINOTRANSFERASE,ALT 116 U/L (14-59); ALBUMIN 3.4 g/dL (3.4-5.0); ALKALINE PHOSPHATASE 109 U/L (46-116); ANION GAP 15.5 mEq/L (7-13); ASPARTATE AMNIOTRANSFERASE,AST 165 U/L (15-37); BILIRUBIN TOTAL 0.3 mg/dL (0.2-1.0); BLOOD UREA NITROGEN,BUN 6 mg/dL (7-18); BUN/CREATININE RATIO 7.8 (No establ ref range); CALCIUM 8.5 mg/dL (8.5-10.1); CARBON DIOXIDE,CO2 27 mmol/L (21-32); CHLORIDE,CL 111 mmol/L (98-107); CREATININE 0.77 mg/dL (0.55-1.02); GLUCOSE RANDOM 100 mg/dL (70-99); MAGNESIUM 2.1 mg/dL (1.8-2.4); POTASSIUM,K 3.5 mmol/L (3.5-5.1); PROTEIN TOTAL,TP 8.5 g/dL (6.4-8.2); SODIUM,NA 150 mmol/L (136-145)
[2024-01-11 04:48] LABS: ESTIMATED GFR 97 mL/min (>=60)
[2024-01-11 04:56] LABS: ETHANOL BLOOD MEDICAL 429 mg/dL (0)
[2024-01-11 05:02] LABS: BACTERIA,URINE MANY /HPF (0-FEW/HPF); EPITHELIAL CELLS,URINE FEW /HPF (NOT SEEN); WBC,URINE >100 /HPF (0-5/HPF)
[2024-01-11] MEDS: cefTRIAXone 1 GM Vial IVPUSH ONE (05:30)
[2024-01-11] MEDS: Sodium Chloride 0.9% 1,000 ML IV ONE (05:30)
[2024-01-11 07:09] LABS: CHOLESTEROL HDL 69 mg/dL (40-59); CHOLESTEROL LDL CALCULATED 84 mg/dL (0-100); CHOLESTEROL TOTAL 182 mg/dL (0-199); TRIGLYCERIDES 144 mg/dL (0-149)
[2024-01-11 07:16] LABS: ANION GAP 15.7 mEq/L (7-13); BLOOD UREA NITROGEN,BUN 6 mg/dL (7-18); CALCIUM 8.3 mg/dL (8.5-10.1); CARBON DIOXIDE,CO2 24 mmol/L (21-32); CHLORIDE,CL 113 mmol/L (98-107); CREATININE 0.62 mg/dL (0.55-1.02); ESTIMATED GFR 113 mL/min (>=60); GLUCOSE RANDOM 95 mg/dL (70-99); POTASSIUM,K 3.7 mmol/L (3.5-5.1); SODIUM,NA 149 mmol/L (136-145)
[2024-01-11] MEDS ORDERED: Ondansetron 4 MG/2 ML SDV IVPUSH PRN (07:42)
[2024-01-11] MEDS ORDERED: Polyethylene Glycol 3350 Powder 17 GM Packet PO PRN (07:42)
[2024-01-11] MEDS ORDERED: Docusate Sodium 100 MG Cap PO PRN (07:42)
[2024-01-11] MEDS ORDERED: Melatonin 3 MG Tab PO PRN (07:42)
[2024-01-11 08:42] LABS: ANION GAP 10.9 mEq/L (7-13); CALCIUM 8.2 mg/dL (8.5-10.1); CREATININE 0.66 mg/dL (0.55-1.02); EST CRCL DRUG DOSING (CG) 86.03 mL/min; POTASSIUM,K 3.9 mmol/L (3.5-5.1)
[2024-01-11 10:16] LABS: ANION GAP 15.4 mEq/L (7-13); CALCIUM 8.2 mg/dL (8.5-10.1); CREATININE 0.7 mg/dL (0.55-1.02); EST CRCL DRUG DOSING (CG) 81.11 mL/min; POTASSIUM,K 3.4 mmol/L (3.5-5.1)
[2024-01-11] MEDS: Multivitamin Tab PO SCH (11:05)
[2024-01-11] MEDS: Folic Acid 1 MG Tab PO SCH (11:05)
[2024-01-11] MEDS: chlordiazePOXIDE 25 MG Cap PO SCH (11:05)
[2024-01-11] MEDS: Thiamine 100 MG Tab PO SCH (11:05)
[2024-01-11] MEDS: Aspirin 81 MG Tab.EC PO ONE (11:05)
[2024-01-11] MEDS: Enoxaparin 40 MG/0.4 ML Syringe SUBCUT SCH (11:05)
[2024-01-11] MEDS: Dextrose 5%-0.45% NaCl 1,000 ML IV SCH (11:06)
[2024-01-11 11:21] LABS: ANION GAP 14.5 mEq/L (7-13); CALCIUM 7.8 mg/dL (8.5-10.1); CREATININE 0.67 mg/dL (0.55-1.02); EST CRCL DRUG DOSING (CG) 84.75 mL/min; POTASSIUM,K 3.5 mmol/L (3.5-5.1)
[2024-01-11] MEDS: Folic Acid 1 MG in Sodium Chloride 0.9% 50 ML IV SCH (11:44)
[2024-01-11] MEDS: Ketorolac 30 MG/ML SDV IVPUSH PRN (11:47)
[2024-01-11 12:08] LABS: FOLIC ACID > 20.0 ng/mL (8.6-58.9)
[2024-01-11] MEDS: Acetaminophen 325 MG Tab PO PRN (20:07)
[2024-01-12] MEDS: LORazepam 2 MG/ML SDV IVPUSH PRN (01:41)
[2024-01-12] MEDS: cefTRIAXone 1 GM Vial IVPUSH SCH (03:49)
[2024-01-12 05:55] LABS: BASOPHILS PERCENT AUTO 0.5 % (0.0-1.0); EOSINOPHILS PERCENT AUTO 7.8 % (1.0-3.0); HEMATOCRIT 33.8 % (37.0-47.0); HEMOGLOBIN 10.8 g/dL (12.0-16.0); LYMPHOCYTES PERCENT AUTO 34.6 % (20.5-50.1); MEAN CORPUSCULAR HEMOGLOBIN 33.6 pg (27.0-34.0); MEAN CORPUSCULAR VOLUME 105.3 fL (80-100); MONOCYTES PERCENT AUTO 11.6 % (2-8); NEUTROPHILS PERCENT AUTO 45.5 % (42.2-75.2); PLATELET COUNT,PLT 131 10^3/uL (150-450); RED BLOOD CELL COUNT 3.21 10^6/uL (4.2-5.4)
[2024-01-12] MEDS ORDERED: Non-Formulary Medication 1 Each (Pantoprazole [Pantoprazole] 20 MG Tab.Dr) PO SCH (06:00)
[2024-01-12 06:33] LABS: ALBUMIN 2.5 g/dL (3.4-5.0); ANION GAP 12.5 mEq/L (7-13); BILIRUBIN TOTAL 0.4 mg/dL (0.2-1.0); BUN/CREATININE RATIO 15.4 (No establ ref range); CALCIUM 7.9 mg/dL (8.5-10.1); CREATININE 0.65 mg/dL (0.55-1.02); EST CRCL DRUG DOSING (CG) 87.35 mL/min; MAGNESIUM 1.7 mg/dL (1.8-2.4); POTASSIUM,K 3.5 mmol/L (3.5-5.1); PROTEIN TOTAL,TP 6.6 g/dL (6.4-8.2)
[2024-01-12 06:37] LABS: A/G RATIO 0.61
[2024-01-12 06:47] LABS: PROTHROMBIN TIME 10.6 SEC (9.0-12.0); PTT,PARTIAL THROMBOPLSTIN TIME 25.2 SEC (22.0-34.0)
[2024-01-12] MEDS: Magnesium Sulfate/Water Premix 2 GM in Premix Bag 1 BAG IV ONE (08:07)
[2024-01-12] MEDS ORDERED: Multivitamins with Iron/Calcium/Folic Acid/Minerals Tab PO SCH (09:00)
[2024-01-12] MEDS: Pantoprazole 40 MG Tab.CR PO SCH (09:17)
[2024-01-12] MEDS: Aspirin 81 MG Tab.EC PO SCH (09:18)
[2024-01-12] MEDS: Furosemide 40 MG Tab PO SCH (09:18)
[2024-01-12] MEDS: Spironolactone 25 MG Tab PO SCH (09:19)
[2024-01-12] MEDS: Lactulose Soln 10 GM/15 ML 30 ML UD Cup PO SCH (09:20)
[2024-01-12] MEDS: Take Home: Cephalexin 500 MG Cap, 6 Cap Pack PO ONE (14:01)
== END 2024-01-12 14:25 | disposition home or self-care (01) ==
LOC: DL.ED 06:05 → DL.MS 06:06 → DL.ED 07:05
PROVIDERS: ADMIT Internal Medicine; ATTEND Internal Medicine
DX: F10.129 Alcohol abuse with intoxication, unspecified (principal); D72.819 Decreased white blood cell count, unspecified; D64.9 Anemia, unspecified; D69.6 Thrombocytopenia, unspecified; E87.0 Hyperosmolality and hypernatremia; E83.42 Hypomagnesemia; R74.8 Abnormal levels of other serum enzymes; R77.8 Other specified abnormalities of plasma proteins; I10 Essential (primary) hypertension; Z79.82 Long term (current) use of aspirin; Z79.899 Other long term (current) drug therapy
CPT/HCPCS: 36415; 70450; 71045; 80048; 80053; 80061; 80305; 80307; 81001; 82607; 82746; 83735; 84295; 84484; 85025; 85610; 85730; 87086; 87088; 87186; 93005; 93306; 99285; A9270; J0696; J1650; J1885; J2060; J3411; J3475; J7030; J7120; J7799; 93010; 99222; 99238; 99284; J3490

== ENCOUNTER 2024-07-15 20:04 | Emergency (ER) | payer SELFPAY | END 2024-07-15 20:36 | LOC: DL.ED 20:04 | DX: F10.120 Alcohol abuse with intoxication, uncomplicated (principal); I10 Essential (primary) hypertension; J45.909 Unspecified asthma, uncomplicated; K21.9 Gastro-esophageal reflux disease without esophagitis; Z90.710 Acquired absence of both cervix and uterus; Z79.82 Long term (current) use of aspirin; Z79.899 Other long term (current) drug therapy | CPT/HCPCS: 99283; 99284 ==